=== PATIENT | male | born 1935 | race Caucasian/White ===

== ENCOUNTER 2016-11-17 08:28 | Day surgery (SDC) | payer MEDICARE ==
[~2016-11-17 08:28] MED LIST: FENTANYL 250 MCG/5 ML AMP IV PRN; LACTATED RINGERS 1,000 ML IV SCH; MIDAZOLAM HCL 5 MG/5 ML VIAL IV PRN
[2016-11-17] MEDS ORDERED: IV START KIT ONE (08:49)
[2016-11-17] MEDS ORDERED: LACTATED RINGERS 1,000 ML ONE (08:49)
[2016-11-17] MEDS ORDERED: FENTANYL 250 MCG/5 ML AMP ONE (10:36)
[2016-11-17] MEDS ORDERED: MIDAZOLAM HCL 5 MG/5 ML VIAL ONE (10:36)
--- NOTE | 2016-11-19 13:48 | SURGPATH ---
[facility] [address] [place] [id number] Patient Name: MAGDI HONEYCUTT JR MR#: [id number] : 1935 Gender: M Specimen #: [id number] Collected: 11/17/2016 Received: 11/18/2016 Reported: 11/19/2016 Submitting Phys: CASSANDRA GRACIA Copy To Phys: Jas MALDONADO [facility] Clinical History / Pre-Operative Diagnosis: HISTORY OF COLON POLYPS Specimen Source / Surgical Procedure Performed: #1-POLYP AT HEPATIC FLEXURE; #2-CECAL POLYP Interpretation: 1. COLON, HEPATIC FLEXURE, BIOPSY: - TUBULAR ADENOMA. - NO EVIDENCE OF MALIGNANCY. 2. CECUM, BIOPSY: - MULTIPLE FRAGMENTS OF TUBULOVILLOUS ADENOMAS. - NO EVIDENCE OF MALIGNANCY. Electronically Signed Out Andrew Lujan M.D., Ph.D. Gross Description: #1 The specimen is received in a formalin filled container labeled with the patient's name and "polyp at hepatic flexure". A polypoid adame biopsy is 0.6 x 0.3 x 0.3 cm. Bisected. Totally embedded in cassette #1. #2 The specimen is received in a formalin filled container labeled with the patient's name and "cecal polyp". Multiple adame biopsies are 0.3-0.5 cm. Totally embedded in cassette #2. Pietro Mcgill. Microscopic Description: 1. Examination of multiple levels from the colon biopsy at the hepatic flexure shows a bisected piece of colonic mucosa with adenomatous changes within glands and tubules. There is no evidence of malignancy. 2. Examination of multiple levels from the cecum biopsy shows multiple fragments of colonic mucosa with adenomatous changes within glands, tubules, and blunted villi. There is no evidence of malignancy. 1: 33770 2: 22300 D12.3 D12.0
--- NOTE | 2016-11-23 13:10 | PROCNOTE ---
Jacinto Mario Jr. : 1935 [id number] DATE: 11/23/2016 This 80-year-old male patient within the practice of Dr. 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 Previous colonoscopy, last in February 2016, permitted partial polypectomy, but residual polyp tissue was noted at the polyp base. A repeat colonoscopy on November 17 demonstrated decrease, but persistent polyp tissue. Extensive attempts at snare electrocautery removed significant portions, but residual polyp tissue appeared at the polypectomy site. The pathology report from November 17 demonstrates a tubular adenoma with no dysplasia. The patient has been once again informed as to these results and offered surgical referral or repeat attempt at colonoscopy for further polypectomy in six months. The patient has decided to undergo repeat colonoscopy. He has been told, should residual polyp tissue be noted at that procedure, surgical referral would be strongly recommended and arranged, he agrees. He will be recontacted in six months and colonoscopy arranged. Medical follow up will be by Dr. Fady Currie. JOB: [id number] CC: Dr. Fady Currie
== END 2016-11-17 11:50 | disposition home or self-care (01) ==
LOC: SDC 08:28
PROVIDERS: ATTEND Internal Medicine Gastroenterology
PROC: 0DBH8ZX Excision of Cecum, Via Natural or Artificial Opening Endoscopic, Diagnostic (ICD-10-PCS; principal; 2016-11-17)
PROC: 0DBL8ZX Excision of Transverse Colon, Via Natural or Artificial Opening Endoscopic, Diagnostic (ICD-10-PCS; 2016-11-17)
DX: D12.0 Benign neoplasm of cecum (principal); D12.3 Benign neoplasm of transverse colon; K57.30 Diverticulosis of large intestine without perforation or abscess without bleeding; Z86.010 Personal history of colon polyps; E78.5 Hyperlipidemia, unspecified; Z86.718 Personal history of other venous thrombosis and embolism; Z85.46 Personal history of malignant neoplasm of prostate; R42 Dizziness and giddiness
CPT/HCPCS: 45385; J3010; J2250; J7120